=== PATIENT | female | born 1960 | race Caucasian/White ===

== ENCOUNTER → 2019-01-30 | Day surgery (SDC) | payer BC ==
[~2019-01-30] MED LIST: IV RINGERS,LACTATED 1000ML 1,000 ML IV SCH; LEVO5TAB29 PO; LIDOCAINE 1% PF 2 ML VIAL. ID PRN; LIDOCAINE 2% PF 5 ML VIAL. ONE; MIDAZOLAM HCL/PF 2 MG/2 ML VIAL. IV PRN; OLME20TA17 PO; PROPOFOL 40 ML IV ONE; fentaNYL PF VIAL 100 MCG/2 ML VIAL IV PRN
[2019-01-30 08:26] VITALS: BP 132/84
== END | disposition home or self-care (01) ==
LOC: SURG 06:26
PROVIDERS: ATTEND Internal Medicine Gastroenterology
DX: Z12.11 Encounter for screening for malignant neoplasm of colon (principal); K57.30 Diverticulosis of large intestine without perforation or abscess without bleeding; K64.0 First degree hemorrhoids; I10 Essential (primary) hypertension; J45.909 Unspecified asthma, uncomplicated; Z88.3 Allergy status to other anti-infective agents; Z86.010 Personal history of colon polyps; Z79.899 Other long term (current) drug therapy; Z90.49 Acquired absence of other specified parts of digestive tract; Z98.51 Tubal ligation status; Z83.3 Family history of diabetes mellitus; Z82.49 Family history of ischemic heart disease and other diseases of the circulatory system
CPT/HCPCS: 45378; J2001; J2704

== ENCOUNTER → 2019-10-15 | Outpatient (CLI) | payer BC ==
[2019-01-30 08:26] VITALS: BP 132/84
[~2019-10-15] MED LIST changes: -IV RINGERS,LACTATED 1000ML 1,000 ML IV SCH; -LIDOCAINE 1% PF 2 ML VIAL. ID PRN; -LIDOCAINE 2% PF 5 ML VIAL. ONE; -MIDAZOLAM HCL/PF 2 MG/2 ML VIAL. IV PRN; -PROPOFOL 40 ML IV ONE; -fentaNYL PF VIAL 100 MCG/2 ML VIAL IV PRN
--- NOTE | 2019-10-15 11:03 | KCIC ---
EXAM: Lumbar spine MRI without contrast. HISTORY: Pain with lifting. TECHNIQUE: Multiplanar, multisequence magnetic resonance imaging of the lumbar spine was performed without contrast. COMPARISON: None. FINDINGS: There is mild lumbar scoliosis and hyperlordosis. There is grade 1 anterolisthesis of L5 on S1, measuring 3 mm. There is grade 1 anterolisthesis of L4 and L5, measuring 2 mm. There is mild retrolisthesis of T12 on L1, and L1 on L2 and L2 on L3. There is degenerative endplate remodeling and disc desiccation at multiple levels. There are several osseous hemangiomas. There is no suspicious osseous lesion. 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 The conus terminates at L1. There is a heterogeneous enlarged uterus likely due to fibroids. There are multiple cysts or single cyst with internal septation along the upper pole the right kidney measuring 5.9 cm. At T11-T12, there is no stenosis. At T12-L1, there is a small left paracentral disc protrusion. There is mild left facet arthropathy. There is mild retrolisthesis. There is no stenosis. At L1-L2, there is no stenosis. At L2-L3, there is no stenosis. At L3-L4, there is no stenosis. At L4-L5, there is no stenosis. At L5-S1, there is mild right greater than left facet arthropathy. There is no stenosis. IMPRESSION: 1. Mild lumbar hyperlordosis and scoliosis with grade 1 anterolisthesis of L5 on S1, and to a lesser extent, L4 on L5. There is also slight retrolisthesis at the lower thoracic and upper lumbar levels. 2. Mild multilevel degenerative change. There is no significant foraminal or central canal stenosis. 3. Heterogeneous enlarged uterus. This may be due to a fibroid uterus. Correlate with pelvic sonography. 4. Large cyst with internal septation or adjacent cysts within the upper pole the right kidney, partially included on the [id number]. Electronically signed by: Afsaneh Gutierrez MD (10/15/2019 11:00 AM) [place] [id number]
== END | disposition home or self-care (01) ==
LOC: KCIC MRI 10:06
DX: M51.25 Other intervertebral disc displacement, thoracolumbar region (principal); M43.17 Spondylolisthesis, lumbosacral region; M47.816 Spondylosis without myelopathy or radiculopathy, lumbar region; N28.1 Cyst of kidney, acquired; N85.2 Hypertrophy of uterus
CPT/HCPCS: 72148